=== PATIENT | male | born 1990 | race African-American/Black ===

== ENCOUNTER 2016-11-10 15:08 | Emergency (ER) | payer OTHER ==
[~2016-11-10] VITALS: Ht 182.9 cm; Wt 71.8 kg
[~2016-11-10 15:08] MED LIST: IBUP800T23 PO; ROBA500T PO
[2016-11-10 15:22] VITALS: BP 124/73; PULSE 73; RESP 16; TEMP 97.8; O2SAT 100
[2016-11-10 15:34] LABS: BLOOD, URINE NEG (NEG); GLUCOSE,URINE NEG (NEG); KETONE, URINE NEG (NEG); NITRITE,URINE NEG (NEG)
[2016-11-10 15:44] LABS: URINE COLOR YELLOW (YELLW/STRAW)
[2016-11-10 15:45] LABS: COMMENT (UR) CULT NOT INDICATED; CULTURE IF INDICATED CULT NOT INDICATED
[2016-11-10] MEDS ORDERED: SODIUM CHLOR 0.9% 1000 ML INJ 1,000 ML IV ONE (15:45)
[2016-11-10 15:57] LABS: AUTOMATED NEUTROPHIL # 1.9 TH/MM3 (1.8-7.7); BASOPHIL # 0.1 TH/MM3 (0-0.2); BASOPHIL % 2.2 % (0.0-2.0); EOSINOPHIL # 0.3 TH/MM3 (0-0.4); EOSINOPHIL % 5.5 % (0.0-4.0); HEMATOCRIT 40.5 % (39.0-51.0); HEMO FLAGS DIFF FINAL; LYMPH % 45.3 % (9.0-44.0); LYMPHOCYTE # 2.3 TH/MM3 (1.0-4.8); MEAN CORPUSCULAR HEMOGLOBIN 31.9 PG (27.0-34.0); MEAN CORPUSCULAR HGB CONC 34.6 % (32.0-36.0); MONO % 10.9 % (0.0-8.0); NEUT % 36.1 % (16.0-70.0); PLATELET COUNT 136 TH/MM3 (150-450); RED BLOOD COUNT 4.41 MIL/MM3 (4.50-5.90); RED CELL DISTRIBUTION WIDTH 12.7 % (11.6-17.2); WHITE BLOOD COUNT 5.2 TH/MM3 (4.0-11.0)
[2016-11-10 16:03] LABS: CHLORIDE 104 MEQ/L (98-107); POTASSIUM 3.6 MEQ/L (3.5-5.1); SODIUM (NA) 140 MEQ/L (136-145)
[2016-11-10 16:08] LABS: ANION GAP 7 MEQ/L (5-15); BICARBONATE 28.6 MEQ/L (21.0-32.0)
[2016-11-10 16:09] LABS: BLOOD UREA NITROGEN 17 MG/DL (7-18)
[2016-11-10 16:11] LABS: ALT (GPT) 37 U/L (12-78); AST (GOT) 28 U/L (15-37)
[2016-11-10 16:12] LABS: GLOMERULAR FILTRATION RATE 111 ML/MIN (>89)
[2016-11-10 16:13] LABS: TOTAL BILIRUBIN ADULT 0.4 MG/DL (0.2-1.0)
[2016-11-10 16:14] LABS: ALKALINE PHOSPHATASE 104 U/L (45-117)
--- NOTE | 2016-11-10 16:22 | PD ---
HPI Chief Complaint: Flank/Kidney Pain Time Seen by Provider: 15:30 Travel History International Travel<30 days: No Contact w/Intl Traveler<30days: No Traveled to known affect area: No History of Present Illness HPI This is a 26-year-old male who presents to the emergency department with 2 weeks of intermittent bilateral flank pain described as cramping, moderate severity, associated with polyuria and polydipsia. He denies any fevers, chills , blood in his urine or cloudy urine. He denies any penile discharge. He was concerned about his kidneys and he recently had a new child and says he wants to be able to be around for his family. He is otherwise healthy. [facility] Past Medical History Medical History: Denies Significant Hx Diminished Hearing: No Immunizations Current: Yes Past Surgical History Surgical History: No Previous Surgery Social History Alcohol Use: Yes (OCCASS) Tobacco Use: No Substance Use: No Allergies-Medications (Allergen,Severity, Reaction): Coded Allergies: No Known Allergies (Verified , 11/10/16) Reported Meds & Prescriptions Reported Meds & Active Scripts Active No Active Prescriptions or Reported Medications Review of Systems Except as stated in HPI: all other systems reviewed are Neg Physical Exam Narrative GENERAL:Well appearing, no acute distress SKIN: Focused skin assessment warm and dry. HEAD: Atraumatic. Normocephalic. EYES: Pupils equal and round. No injection or drainage. ENT: Moist mucous membranes NECK: Trachea midline. CARDIOVASCULAR: Regular rate and rhythm. No murmur appreciated. RESPIRATORY: Clear to auscultation. Breath sounds equal bilaterally. GASTROINTESTINAL: Abdomen soft, non-tender, nondistended. MUSCULOSKELETAL: No obvious deformities. NEUROLOGICAL: Awake and alert. No obvious cranial nerve deficits. Moving all extremities. PSYCHIATRIC: Appropriate mood and affect; insight and judgment normal. Data Data Last Documented VS Vital Signs Date Time Temp Pulse Resp B/P Pulse Ox O2 Delivery O2 Flow Rate FiO2 11/10/16 15:22 97.8 73 16 124/73 100 Orders Urinalysis - C+S If Indicated (11/10/16 15:25) Complete Blood Count With Diff (11/10/16 15:37) Comprehensive Metabolic Panel (11/10/16 15:37) ^ Insert Iv (11/10/16 15:37) Sodium Chlor 0.9% 1000 Ml Inj (Ns 1000 M (11/10/16 15:45) Labs Laboratory Tests Test 11/10/16 11/10/16 15:15 15:46 Urine Color YELLOW Urine Turbidity CLEAR Urine pH 6.0 Urine Specific [place] 1.012 Urine Protein NEG mg/dL Urine Glucose (UA) NEG mg/dL Urine Ketones NEG mg/dL Urine Occult Blood NEG Urine Nitrite NEG Urine Bilirubin NEG Urine Leukocyte Esterase NEG Microscopic Urinalysis Comment CULT NOT INDICATED White Blood Count 5.2 TH/MM3 Red Blood Count 4.41 MIL/MM3 Hemoglobin 14.0 GM/DL Hematocrit 40.5 % Mean Corpuscular Volume 92.0 FL Mean Corpuscular Hemoglobin 31.9 PG Mean Corpuscular Hemoglobin 34.6 % Concent Red Cell Distribution Width 12.7 % Platelet Count 136 TH/MM3 Mean Platelet Volume 11.0 FL Neutrophils (%) (Auto) 36.1 % Lymphocytes (%) (Auto) 45.3 % Monocytes (%) (Auto) 10.9 % Eosinophils (%) (Auto) 5.5 % Basophils (%) (Auto) 2.2 % Neutrophils # (Auto) 1.9 TH/MM3 Lymphocytes # (Auto) 2.3 TH/MM3 Monocytes # (Auto) 0.6 TH/MM3 Eosinophils # (Auto) 0.3 TH/MM3 Basophils # (Auto) 0.1 TH/MM3 CBC Comment DIFF FINAL Differential Comment Sodium Level 140 MEQ/L Potassium Level 3.6 MEQ/L Chloride Level 104 MEQ/L Carbon Dioxide Level 28.6 MEQ/L Anion Gap 7 MEQ/L Blood Urea Nitrogen 17 MG/DL Creatinine 0.99 MG/DL Estimat Glomerular Filtration 111 ML/MIN Rate Random Glucose 100 MG/DL Calcium Level 8.3 MG/DL Total Bilirubin 0.4 MG/DL Aspartate Amino Transf 28 U/L (AST/SGOT) Alanine Aminotransferase 37 U/L (ALT/SGPT) Alkaline Phosphatase 104 U/L Total Protein 7.1 GM/DL Albumin 4.0 GM/DL [facility] Medical Decision Making Medical Screen Exam Complete: Yes Emergency Medical Condition: Yes Interpretation(s) No leukocytosis Electrolytes are reassuring Urinalysis: No infection Differential Diagnosis Renal failure, nephrolithiasis, diabetes, pyelonephritis, urinary tract infection Narrative Course This is a 26-year-old male who presents to the emergency department with flank pain, polyuria and polydipsia. He is very well-appearing on exam with normal vital signs. Labs are obtained which are reassuring. I think patient can follow up with his primary care physician. Diagnosis Primary Impression: Flank pain Patient Instructions: General Instructions Additional Instructions: If you develop severe or worsening abdominal pain, fever>100.4, persistent vomiting or inability to eat or drink return to the emergency department immediately. Follow up with your primary care physician in 1-2 days for a check-up if your symptoms have not improved. Med/Other Pt SpecificInfo: No Change to Meds Scripts No Active Prescriptions or Reported Meds Disposition: 01 DISCHARGE HOME Condition: Stable Octavia Hart MD November 10, 2016 16:22
== END 2016-11-10 17:26 | disposition home or self-care (01) ==
LOC: PHED 15:08
DX: R10.30 Lower abdominal pain, unspecified (principal); R35.8 Other polyuria; R63.1 Polydipsia
CPT/HCPCS: 80053; 81001; 85025; 96360; 99284; J7030